=== PATIENT | male | born 1955 | race Caucasian/White ===

== ENCOUNTER 2020-11-24 14:24 | Emergency (ER) | payer OTHER ==
[~2020-11-24] VITALS: Ht 170 cm; Wt 81.6 kg
[2020-11-24 14:32] VITALS: BP 137/82
--- NOTE | 2020-11-24 14:48 | ED Integumentary General ---
General Chief Complaint: Bite-Animal/Human/Insect Stated Complaint: L HAND SPIDER BITE Nursing Triage Note: PT NOTICED RIGHT HAND BITE TODAY. PT AMB TO FT[facility] WIHTOUT DIFFICULTY. Source: patient Exam Limitations: no limitations History of Present Illness Date Seen by Provider: Nov 24, 2020 Time Seen by Provider: 14:20 Initial Comments This is a well-appearing 65-year-old male who presents to the ER with complaints of a bite or cut on his right middle finger. States he picked at it and squeezed the finger until clear fluid came out. Reports his hand started swelling and became red last night. Denies fevers, chills, cough, shortness of breath, nausea, vomiting, diarrhea, abdominal pain. No other complaints. Allergies and Home Medications Allergies Coded Allergies: No Known Drug Allergies (Unverified , 11/24/20) Home Medications Sulfamethoxazole/Trimethoprim 1 Each Tablet, 1 EACH PO BID Prescribed by: MIGUELITO MOSELEY on 11/24/20 2207 Patient Home Medication List Home Medication List Reviewed: Yes Review of Systems Review of Systems Constitutional: no symptoms reported EENTM: no symptoms reported Respiratory: no symptoms reported Cardiovascular: no symptoms reported Gastrointestinal: no symptoms reported Genitourinary: no symptoms reported Musculoskeletal: no symptoms reported Skin: see HPI Psychiatric/Neurological: No Symptoms Reported Endocrine: No Symptoms Reported Hematologic/Lymphatic: No Symptoms Reported Past Cjjfrrj-Luakoo-Mhyhix Hx Patient Social History Alcohol Use: Denies Use Recreational Drug Use: No Smoking Status: Current Everyday Smoker Type Used: Cigarettes Recent Foreign Travel: No Contact w/Someone Who Travel: No Recent Infectious Disease Expo: No Immunizations Up To Date PED Vaccines UTD: No Physical Exam Vital Signs Vital Signs - First Documented 11/24/20 14:32 Temp 36.7 Pulse 86 Resp 20 B/P (MAP) 137/82 (100) Pulse Ox 98 O2 Delivery Room Air Capillary Refill : Less Than 3 Seconds General Appearance: WD/WN, no apparent distress HEENT: PERRL/EOMI, pharynx normal Neck: full range of motion, normal inspection Cardiovascular: normal peripheral pulses (bilateral radial pulses 2+ and regular), regular rate, rhythm Respiratory: lungs clear, normal breath sounds Gastrointestinal: normal bowel sounds, non tender, soft Extremities: normal range of motion, normal capillary refill, inflammation (erythema to dorsal aspect of right hand), swelling (Dorsal aspect of right hand ) Neurologic/Psychiatric: no motor/sensory deficits, alert, normal mood/affect, oriented x 3 Skin: normal color, warm/dry Skin Problem Character: erythema (Right hand ), swelling (right hand ), warm (right hand ) Progress/Results/Core Measures Results/Orders My Orders Orders - MIGUELITO MOSELEY APRN Wound Culture (11/24/20 14:48) Sulfamethoxazole/Trimet Ds Tab (Bactrim (11/24/20 15:00) Bacitracin Ointment (Bacitracin Ointment (11/24/20 15:00) Medications Given in ED Current Medications Medications Dose Ordered Sig/Zakia Route Start Time Stop Time Status Last Admin Dose Admin Bacitracin APPLY TO AFFECTED AREA ONCE ONCE TOP 11/24/20 15:00 11/24/20 15:01 DC 11/24/20 14:57 28 GM Trimethoprim/ Sulfamethoxazole 1 ea ONCE ONCE PO 11/24/20 15:00 11/24/20 15:01 DC 11/24/20 14:57 1 EA Vital Signs/I&O 11/24/20 14:32 Temp 36.7 Pulse 86 Resp 20 B/P (MAP) 137/82 (100) Pulse Ox 98 O2 Delivery Room Air Blood Pressure Mean: 100 Progress Progress Note : Progress Note Pt. examined. No systemic symptoms reported. VSS. Demarcated area of erythema with skin pen. Given first dose of Bactrim in ED. Wound culture obtained. Reviewed discharge plan and he is agreeable with plan. No questions voiced at this time. Departure Impression Primary Impression: Cellulitis Disposition: HOME, SELF-CARE Condition: Stable/Unchanged Departure-Patient Inst. Referrals: NO,LOCAL PHYSICIAN (PCP/Family) Primary Care Physician Patient Instructions: Cellulitis (Skin Infection), Adult (DC) Add. Discharge Instructions: Plan: 1. Discharge home. Take antibiotics as directed and complete full course. Use ointment twice a day to open site. 2. May take Tylenol or Ibuprofen as needed for pain per package instructions. 3. Keep your arm elevated above your heart to reduce swelling. May use ice 20 minutes at a time for pain and swelling. NO HEAT. 4. Follow up with your primary care provider if your symptoms persist. 5. . Return for any new or concerning symptoms. All discharge instructions reviewed with patient and/or family. Voiced understanding. Scripts Sulfamethoxazole/Trimethoprim (Bactrim Ds Tablet) 1 Each Tablet 1 EACH PO BID for 10 Days, #20 TAB 0 Refills Prov: MIGUELITO MOSELEY SHUTDOWN COORDINATOR 11/24/20 MIGUELITO MOSELEY SHUTDOWN COORDINATOR Nov 24, 2020 14:48
[2020-11-24] MEDS ORDERED: SULF1TAB35 PO (14:57)
[2020-11-24] MEDS ORDERED: BACITRACIN OINTMENT 28 GM TUBE TOP ONE (15:00)
[2020-11-24] MEDS ORDERED: TRIM/SULFAMETH 160/800 (SEPTRA DS) TAB PO ONE (15:00)
== END 2020-11-24 15:15 | disposition home or self-care (01) ==
LOC: EDUNIT# 14:24 → ER 14:27
DX: L03.113 Cellulitis of right upper limb (principal); F17.210 Nicotine dependence, cigarettes, uncomplicated
CPT/HCPCS: 87070; 87077; 87186; 87205; 99283

== ENCOUNTER 2020-11-24 20:55 | Emergency (ER) | payer OTHER ==
[~2020-11-24] VITALS: Ht 170 cm; Wt 81.6 kg
[~2020-11-24 20:55] MED LIST: SULF1TAB35 PO
--- NOTE | 2020-11-24 21:26 | ED General ---
General Stated Complaint: LETHARGIC Source of Information: Patient Exam Limitations: Other (under the influence of unknown substance ) History of Present Illness Date Seen by Provider: Nov 24, 2020 Time Seen by Provider: 21:18 Initial Comments This is a 65-year-old well-appearing male who presents to the ER via [facility] with reports of lethargy. Patient was found at [facility] sitting on bench, and a worker tried to wake him and was unable to wake him. Staff and SEAMUS attempted sternal rub with minimal responsiveness. EMS reports patient woke after IV start. He was evaluated and treated by me earlier this evening for cellulitis in his right hand. No sedating mediations given. Upon arrival patient is awake, alert and oriented. Denies any complaint other than his right hand, from swelling. Denies any drug or alcohol use. Allergies and Home Medications Allergies Coded Allergies: No Known Drug Allergies (Unverified , 11/24/20) Home Medications Sulfamethoxazole/Trimethoprim 1 Each Tablet, 1 EACH PO BID Prescribed by: MIGUELITO MOSELEY on 11/24/20 7146 Patient Home Medication List Home Medication List Reviewed: Yes Review of Systems Review of Systems Constitutional: no symptoms reported EENTM: no symptoms reported Respiratory: no symptoms reported Cardiovascular: no symptoms reported Gastrointestinal: no symptoms reported Genitourinary: no symptoms reported Musculoskeletal: no symptoms reported Skin: see HPI Psychiatric/Neurological: No Symptoms Reported Hematologic/Lymphatic: No Symptoms Reported Immunological/Allergic: no symptoms reported Past Jwfhhco-Tlmpom-Tlkiay Hx Patient Social History Type Used: Cigarettes Recent Hopitalizations: No Immunizations Up To Date PED Vaccines UTD: No Past Medical History Surgeries: Yes (HERNIA REPAIR X'S 2 WEEKS AGO) Respiratory: No Cardiac: Yes Heart Attack Neurological: No Genitourinary: No Gastrointestinal: No Musculoskeletal: No Endocrine: No HEENT: No Cancer: Yes Prostate Psychosocial: No Integumentary: No Blood Disorders: No Physical Exam Vital Signs Vital Signs - First Documented 11/24/20 11/24/20 21:18 22:08 Temp 37.2 Pulse 77 Resp 16 B/P (MAP) 156/88 (110) Pulse Ox 97 O2 Delivery Room Air Capillary Refill : Height, Weight, BMI Height: '" Weight: lbs. oz. kg; 28.00 BMI Method: General Appearance: No Apparent Distress, WD/WN Eyes: Bilateral Eye Normal Inspection, Bilateral Eye EOMI Neck: Full Range of Motion, Normal Inspection Respiratory: Lungs Clear, Normal Breath Sounds Cardiovascular: Regular Rate, Rhythm, Normal Peripheral Pulses Extremity: Normal Capillary Refill, Normal Range of Motion, Inflammation (right hand ), Swelling (Right hand ) Neurologic/Psychiatric: Alert, Oriented x3, No Motor/Sensory Deficits, Normal Mood/Affect Skin: Normal Color, Warm/Dry, Other (Right hand swelling and redness ) Focused Exam Lactate Level 11/24/20 21:22: Lactic Acid Level 1.00 Lactic Acid Level Progress/Results/Core Measures Suspected Sepsis SIRS Temperature: Pulse: Respiratory Rate: Laboratory Tests 11/24/20 21:22: White Blood Count 9.7 Blood Pressure / Mean: 11/24/20 21:22: Lactic Acid Level 1.00 Laboratory Tests 11/24/20 21:22: Creatinine 0.79, Platelet Count 248, Total Bilirubin 0.2 Results/Orders Lab Results Laboratory Tests Test 11/24/20 21:22 11/24/20 21:30 Range/Units White Blood Count 9.7 4.3-11.0 10^3/uL Red Blood Count 4.66 4.30-5.52 10^6/uL Hemoglobin 13.9 13.3-17.7 g/dL Hematocrit 41 40-54 % Mean Corpuscular Volume 88 80-99 fL Mean Corpuscular Hemoglobin 30 25-34 pg Mean Corpuscular Hemoglobin Concent 34 32-36 g/dL Red Cell Distribution Width 13.4 10.0-14.5 % Platelet Count 248 130-400 10^3/uL Mean Platelet Volume 9.6 9.0-12.2 fL Immature Granulocyte % (Auto) 0 % Neutrophils (%) (Auto) 63 42-75 % Lymphocytes (%) (Auto) 25 12-44 % Monocytes (%) (Auto) 8 0-12 % Eosinophils (%) (Auto) 3 0-10 % Basophils (%) (Auto) 1 0-10 % Neutrophils # (Auto) 6.1 1.8-7.8 10^3/uL Lymphocytes # (Auto) 2.4 1.0-4.0 10^3/uL Monocytes # (Auto) 0.8 0.0-1.0 10^3/uL Eosinophils # (Auto) 0.3 0.0-0.3 10^3/uL Basophils # (Auto) 0.1 0.0-0.1 10^3/uL Immature Granulocyte # (Auto) 0.0 0.0-0.1 10^3/uL Sodium Level 137 135-145 MMOL/L Potassium Level 3.6 3.6-5.0 MMOL/L Chloride Level 101 98-107 MMOL/L Carbon Dioxide Level 24 21-32 MMOL/L Anion Gap 12 5-14 MMOL/L Blood Urea Nitrogen 10 7-18 MG/DL Creatinine 0.79 0.60-1.30 MG/DL Estimat Glomerular Filtration Rate > 60 BUN/Creatinine Ratio 13 Glucose Level 101 70-105 MG/DL Lactic Acid Level 1.00 0.50-2.00 MMOL/L Calcium Level 8.8 8.5-10.1 MG/DL Corrected Calcium 8.8 8.5-10.1 MG/DL Total Bilirubin 0.2 0.1-1.0 MG/DL Aspartate Amino Transf (AST/SGOT) 16 5-34 U/L Alanine Aminotransferase (ALT/SGPT) 16 0-55 U/L Alkaline Phosphatase 85 40-136 U/L Total Protein 6.5 6.4-8.2 GM/DL Albumin 4.0 3.2-4.5 GM/DL Serum Alcohol < 10 <10 MG/DL Urine Color YELLOW Urine Clarity CLEAR Urine pH 7.0 5-9 Urine Specific [place] 1.015 L 1.016-1.022 Urine Protein NEGATIVE NEGATIVE Urine Glucose (UA) NEGATIVE NEGATIVE Urine Ketones NEGATIVE NEGATIVE Urine Nitrite NEGATIVE NEGATIVE Urine Bilirubin NEGATIVE NEGATIVE Urine Urobilinogen 0.2 < = 1.0 MG/DL Urine Leukocyte Esterase NEGATIVE NEGATIVE Urine RBC (Auto) NEGATIVE NEGATIVE Urine RBC NONE /HPF Urine WBC NONE /HPF Urine Squamous Epithelial Cells RARE /HPF Urine Crystals NONE /LPF Urine Bacteria NEGATIVE /HPF Urine Casts NONE /LPF Urine Mucus NEGATIVE /LPF Urine Culture Indicated NO Urine Opiates Screen NEGATIVE NEGATIVE Urine Oxycodone Screen NEGATIVE NEGATIVE Urine Methadone Screen NEGATIVE NEGATIVE Urine Propoxyphene Screen NEGATIVE NEGATIVE Urine Barbiturates Screen NEGATIVE NEGATIVE Ur Tricyclic Antidepressants Screen NEGATIVE NEGATIVE Urine Phencyclidine Screen NEGATIVE NEGATIVE Urine Amphetamines Screen POSITIVE H NEGATIVE Urine Methamphetamines Screen POSITIVE H NEGATIVE Urine Benzodiazepines Screen NEGATIVE NEGATIVE Urine Cocaine Screen NEGATIVE NEGATIVE Urine Cannabinoids Screen NEGATIVE NEGATIVE My Orders Orders - MIGUELITO MOSELEY AERODYNAMICS TEACHER Cbc With Automated Diff (11/24/20 21:22) Comprehensive Metabolic Panel (11/24/20 21:22) Alcohol (11/24/20 21:22) Drug Screen Stat (Urine) (11/24/20 21:22) Ua Culture If Indicated (11/24/20 21:22) Ekg Tracing (11/24/20 21:22) Lactic Acid Analyzer (11/24/20 21:22) Vital Signs/I&O Capillary Refill : Progress Note : Progress Note Pt. examined and in no acute distress. States he left hospital without issue and went to [employer] to play. Denies alcohol or drug use, however he does appear to be under the influence of an unknown substance. He is alert and oriented x3 and has no focal or gross neurological deficits. Initiated sepsis workup for right hand. ETOH and UDS ordered. Labs reviewed and are unremarkable other than positive for amphetamines and methamphetamines. He is pacing room asking staff when he can leave. Reviewed findings of labs and strongly reinforced to stop using drugs and be sure to take antibiotics as directed so his infection does not worsen. Verbalized understanding. ECG Initial ECG Impression Date: Nov 24, 2020 Initial ECG Intervals RBBB Departure Impression Primary Impression: Lethargy Disposition: 01 HOME, SELF-CARE Condition: Improved Departure-Patient Inst. Decision time for Depature: 22:01 Referrals: NO,LOCAL PHYSICIAN (PCP/Family) Primary Care Physician Patient Instructions: ALCOHOL AND SUBSTANCE ABUSE Add. Discharge Instructions: Plan: 1. Discharge home. Stop using methamphetamines. 2. May take Tylenol or Ibuprofen as needed for pain per package instructions. Take antibiotics as previously directed. 3. Follow up with your primary care provider if your symptoms persist. 4. Return for any new or concerning symptoms. MIGUELITO MOSELEY AERODYNAMICS TEACHER Nov 24, 2020 21:26
[2020-11-24 21:34] LABS: BASOPHILS # (AUTO) 0.1 10^3/uL (0.0-0.1); BASOPHILS % (AUTO) 1 % (0-10); EOSINOPHILS # (AUTO) 0.3 10^3/uL (0.0-0.3); EOSINOPHILS % (AUTO) 3 % (0-10); HEMATOCRIT 41 % (40-54); HEMOGLOBIN 13.9 g/dL (13.3-17.7); LYMPHOCYTES # (AUTO) 2.4 10^3/uL (1.0-4.0); LYMPHOCYTES % (AUTO) 25 % (12-44); MEAN CORPUSCULAR HEMOGLOBIN 30 pg (25-34); MEAN CORPUSCULAR HGB CONC 34 g/dL (32-36); MEAN CORPUSCULAR VOLUME 88 fL (80-99); MEAN PLATELET VOLUME 9.6 fL (9.0-12.2); MONOCYTES # (AUTO) 0.8 10^3/uL (0.0-1.0); MONOCYTES % (AUTO) 8 % (0-12); NEUTROPHILS # (AUTO) 6.1 10^3/uL (1.8-7.8); NEUTROPHILS % (AUTO) 63 % (42-75); PLATELET COUNT 248 10^3/uL (130-400); WHITE BLOOD COUNT 9.7 10^3/uL (4.3-11.0)
[2020-11-24 21:40] LABS: BILIRUBIN,URINE NEGATIVE (NEGATIVE); CLARITY,URINE CLEAR; COLOR,URINE YELLOW; GLUCOSE, URINE (UA) NEGATIVE (NEGATIVE); KETONES,URINE NEGATIVE (NEGATIVE); LEUKOCYTE ESTERASE ,URINE NEGATIVE (NEGATIVE); NITRITE,URINE NEGATIVE (NEGATIVE); PROTEIN,URINE NEGATIVE (NEGATIVE)
[2020-11-24 21:50] LABS: CHLORIDE 101 MMOL/L (98-107); POTASSIUM 3.6 MMOL/L (3.6-5.0); SODIUM 137 MMOL/L (135-145)
[2020-11-24 21:51] LABS: CALCIUM 8.8 MG/DL (8.5-10.1)
[2020-11-24 21:52] LABS: BACTERIA,URINE NEGATIVE /HPF; SQUAMOUS EPITHELIAL CELL,UR RARE /HPF
[2020-11-24 21:52] LABS: GLUCOSE 101 MG/DL (70-105); TOTAL PROTEIN 6.5 GM/DL (6.4-8.2)
[2020-11-24 21:53] LABS: CARBON DIOXIDE 24 MMOL/L (21-32)
[2020-11-24 21:53] LABS: AMPHETAMINE SCREEN, URINE POSITIVE (NEGATIVE); BARBITURATE SCREEN URINE NEGATIVE (NEGATIVE); BENZODIAZEPINES SCREEN URINE NEGATIVE (NEGATIVE); CANNABINOID SCREEN, URINE NEGATIVE (NEGATIVE); COCAINE SCREEN URINE NEGATIVE (NEGATIVE); METHADONE STAT NEGATIVE (NEGATIVE); METHAMPHETAMINE SCREEN URINE S POSITIVE (NEGATIVE); OPIATE SCREEN URINE NEGATIVE (NEGATIVE); OXYCODONE STAT NEGATIVE (NEGATIVE); PROPOXYPHENE STAT NEGATIVE (NEGATIVE); TRICYCLIC ANTIDEPRESSANTS SCRE NEGATIVE (NEGATIVE)
[2020-11-24 21:54] LABS: BILIRUBIN,TOTAL 0.2 MG/DL (0.1-1.0)
[2020-11-24 21:56] LABS: ALKALINE PHOSPHATASE 85 U/L (40-136); CREATININE SERUM 0.79 MG/DL (0.60-1.30); GFR ESTIMATED > 60
[2020-11-24 21:57] LABS: BUN/CREATININE RATIO 13
[2020-11-24 21:59] LABS: ALANINE AMINOTRANSFERASE 16 U/L (0-55)
[2020-11-24 22:08] VITALS: BP 128/106
== END 2020-11-24 22:11 | disposition home or self-care (01) ==
LOC: EDUNIT# 20:55 → ER 20:56
DX: R53.83 Other fatigue (principal); Z85.46 Personal history of malignant neoplasm of prostate
CPT/HCPCS: 36415; 80053; 80306; 80320; 81000; 83605; 85025; 93005